=== PATIENT | female | born 1940 | race Caucasian/White ===

== ENCOUNTER 2021-09-16 06:43 | Emergency (ER) | payer OTHER ==
[~2021-09-16] VITALS: Ht 152.4 cm; Wt 73.0 kg
[2021-09-16] MEDS ORDERED: METFORMIN HCL850 MG (07:20)
[2021-09-16] MEDS ORDERED: ALTOPREV40 MG (07:21)
[2021-09-16] MEDS ORDERED: ZYRTEC10 M3 PO (07:21)
[2021-09-16] MEDS ORDERED: AVAPRO75 MG (07:21)
[2021-09-16] MEDS ORDERED: CIPRO500 MG (07:22)
[2021-09-16] MEDS ORDERED: NEURONTIN300 MG (07:22)
[2021-09-16] MEDS ORDERED: CIPRO500 MG PO (07:22)
[2021-09-16] MEDS ORDERED: OSEL75CA PO (15:09)
[2021-09-16] MEDS ORDERED: LEVOFLOXACIN500 MG PO (15:14)
== END 2021-09-16 15:22 | disposition home or self-care (01) ==
LOC: ER 06:43
DX: R60.0 Localized edema (principal); R05.9 Cough, unspecified; J10.1 Influenza due to other identified influenza virus with other respiratory manifestations; M79.604 Pain in right leg; I87.2 Venous insufficiency (chronic) (peripheral); I70.293 Other atherosclerosis of native arteries of extremities, bilateral legs; Z03.818 Encounter for observation for suspected exposure to other biological agents ruled out